=== PATIENT | female | born 2000 ===

== ENCOUNTER 2018-01-17 11:01 | Emergency (ER) | payer OTHER ==
[~2018-01-17] VITALS: Ht 157.5 cm; Wt 72.6 kg
== END 2018-01-17 13:15 | disposition home or self-care (01) ==
LOC: ER 11:01
DX: S00.83XA Contusion of other part of head, initial encounter (principal); W18.39XA Other fall on same level, initial encounter; Y93.89 Activity, other specified; Y92.230 Patient room in hospital as the place of occurrence of the external cause; Y99.8 Other external cause status; M62.838 Other muscle spasm